=== PATIENT | male | born 1975 | race Caucasian/White ===

== ENCOUNTER 2020-05-02 10:48 | Emergency (ER) | payer BC ==
[~2020-05-02] VITALS: Ht 185.4 cm; Wt 77.3 kg
--- NOTE | 2020-05-02 15:12 | NUR ---
PT CAME BACK FROM CT SCAN.
[2020-05-02 15:49] VITALS: BP 122/88
== END 2020-05-02 15:58 | disposition home or self-care (01) ==
LOC: ER 10:48
DX: S00.11XA Contusion of right eyelid and periocular area, initial encounter (principal); L53.8 Other specified erythematous conditions; F17.200 Nicotine dependence, unspecified, uncomplicated; Y04.8XXA Assault by other bodily force, initial encounter; Y92.89 Other specified places as the place of occurrence of the external cause; Y99.8 Other external cause status
CPT/HCPCS: 70450; 70490; 99285